=== PATIENT | female | born 1995 | race Caucasian/White ===

== ENCOUNTER 2016-06-23 03:16 | Emergency (ER) | payer OTHER ==
--- NOTE | 2016-06-23 05:22 | DIAGNOSTIC IMAGING REPORT ---
PROCEDURE: XR ABD SERIES 2V ABD/1V CHEST INDICATION: ABD PX TECHNIQUE: AP supine and upright views of the abdomen with single view of the chest. COMPARISON: None. FINDINGS: CHEST: Lungs are clear. Normal cardiovascular structures. Bony thorax is unremarkable. Singh rods from T4-L1. ABDOMEN: Bowel gas pattern is normal. Large amount of stool. No soft-tissue masses or unusual calcifications. No evidence of free air. IUD in place. Umbilical metallic piercing device projects over the lumbar spine. Osseous structures are unremarkable. IMPRESSION: 1. Negative chest 2. Obstipation
--- NOTE | 2016-06-24 02:30 | ED ORDER SUMMARY ---
..... Patient: FRANCIA GUY OrderSheet [facility] VisitID: [id number] [address] [place] [address] 21y, F Registration Date/Time: 06/23/2016 ORDER SHEET Weight: 63.5 kg (stated) Allergies: Oxycodone GENERAL ORDERS: Abd Series 2V Abd/1V Chest Urgent (03:37 06/23/2016 PHutchinson DO) (Ack 3:52 [facility] Animal Caregiver) (4:14 Jose) CBC w Diff Urgent (03:38 06/23/2016 PHutchinson DO) (Ack 3:52 [facility] Animal Caregiver) (4:32 RCollier R.N.) CMP Urgent (03:38 06/23/2016 PHutchinson DO) (Ack 3:52 [facility] Animal Caregiver) (4:32 RCollier R.N.) UA-Culture if indicated Urgent (03:38 06/23/2016 PHutchinson DO) (Ack 3:52 [facility] Animal Caregiver) (Cancelled: Unable to Collect5:41 RCollier R.N.) Amylase Urgent (03:38 06/23/2016 PHutchinson DO) (Ack 3:52 [facility] Animal Caregiver) (4:32 RCollier R.N.) Lipase Urgent (03:38 06/23/2016 PHutchinson DO) (Ack 3:52 [facility] Caregiver) (4:32 RCollier R.N.) Urine Drug Screen Urgent (03:38 06/23/2016 PHutchinson DO) (Ack 3:52 [facility] Animal Caregiver) (Cancelled: Unable to Collect5:41 RCollier R.N.) Urine Urgent (03:38 06/23/2016 PHutchinson DO) (Ack 3:52 [facility] Animal Caregiver) (Cancelled: Unable to Collect5:41 RCollier R.N.) NPO (03:38 06/23/2016 PHutchinson DO) (3:54 RCollier R.N.) MEDICATION ORDERS: IV FLUIDS: IV NS : initial bolus 1000 mL (1000 mL/hr), then 500 mL/hr for X2 (NOW) (03:37 06/23/2016 [facility]) (Ack 3:38 RCollier R.N.) (3:53 RCollier R.N.) Reglan IV 10 mg (NOW) (03:37 06/23/2016 [facility]) (Ack 3:38 RCollier R.N.) (3:53 RCollier R.N.) Zofran IV 4 mg (NOW) (03:38 06/23/2016 [facility]) (Ack 3:38 RCollier R.N.) (3:53 RCollier R.N.) ORDER SHEET NOTES: [Electronically signed by Kayla Paez R.N. (05:42 06/23/2016)] [Electronically signed by Navid Mcmahon DO (06:22 06/23/2016)] [Electronically locked/signed by Kayla Paez R.N. (05:42 06/23/2016)]
--- NOTE | 2016-06-24 02:30 | ED ORDER SUMMARY ---
..... Patient: FRANCIA GUY OrderSheet [facility] VisitID: [id number] [address] [place] [address] 21y, F Registration Date/Time: 06/23/2016 ORDER SHEET Weight: 63.5 kg (stated) Allergies: Oxycodone GENERAL ORDERS: Abd Series 2V Abd/1V Chest Urgent (03:37 06/23/2016 PHutchinson DO) (Ack 3:52 [facility] Security Checker) (4:14 Jose) CBC w Diff Urgent (03:38 06/23/2016 PHutchinson DO) (Ack 3:52 [facility] Security Checker) (4:32 RCollier R.N.) CMP Urgent (03:38 06/23/2016 PHutchinson DO) (Ack 3:52 [facility] Security Checker) (4:32 RCollier R.N.) UA-Culture if indicated Urgent (03:38 06/23/2016 PHutchinson DO) (Ack 3:52 [facility] Security Checker) (Cancelled: Unable to Collect5:41 RCollier R.N.) Amylase Urgent (03:38 06/23/2016 PHutchinson DO) (Ack 3:52 [facility] Checker) (4:32 RCollier R.N.) Lipase Urgent (03:38 06/23/2016 PHutchinson DO) (Ack 3:52 [facility] Checker) (4:32 RCollier R.N.) Urine Drug Screen Urgent (03:38 06/23/2016 PHutchinson DO) (Ack 3:52 [facility] Security Checker) (Cancelled: Unable to Collect5:41 RCollier R.N.) Urine Urgent (03:38 06/23/2016 PHutchinson DO) (Ack 3:52 [facility] Check[facility]) (Cancelled: Unable to Collect5:41 RCollier R.N.) NPO (03:38 06/23/2016 PHutchinson DO) (3:54 RCollier R.N.) MEDICATION ORDERS: IV FLUIDS: IV NS : initial bolus 1000 mL (1000 mL/hr), then 500 mL/hr for X2 (NOW) (03:37 06/23/2016 [facility]) (Ack 3:38 RCollier R.N.) (3:53 RCollier R.N.) Reglan IV 10 mg (NOW) (03:37 06/23/2016 [facility]) (Ack 3:38 RCollier R.N.) (3:53 RCollier R.N.) Zofran IV 4 mg (NOW) (03:38 06/23/2016 [facility]) (Ack 3:38 RCollier R.N.) (3:53 RCollier R.N.) ORDER SHEET NOTES: [Electronically signed by Kayla Paez R.N. (05:42 06/23/2016)] [Electronically signed by Navid Mcmahon DO (06:22 06/23/2016)] [Electronically locked/signed by Kayla Paez R.N. (05:42 06/23/2016)]
--- NOTE | 2016-06-24 02:30 | ED MAR SUMMARY ---
..... Medication Administration Record [facility] [address] [place] [address] Patient: FRANCIA GUY Visit ID: [id number] 21y, F Weight: 63.5 kg Height/Length: 67 in BMI: 21.9 ALLERGIES: Oxycodone Start 03:48 06/23/2016 Kayla Paez R.N., Stop 04:55 06/23/2016 Kayla Paez R.N. Medication Administered: IV NS (SALINE), Dose: IV Fluids over 1 hour(s), Rate: 1000 mL/hr, Dispensed: 1000 mL bag, Site: #1 right AC. Medication Ordered: IV NS : initial bolus 1000 mL (1000 mL/hr), then 500 mL/hr for X2 (NOW). Given 03:51 06/23/2016 Kayla Paez R.N. Medication Administered: ZOFRAN [IVP] (ONDANSETRON HCL), Dose: 4 mg IVP over 30 second(s), Site: #1 right AC. Medication Ordered: Zofran IV 4 mg (NOW). Given 03:52 06/23/2016 Kayla Paez R.N. Medication Administered: REGLAN [IVP] (METOCLOPRAMIDE HCL), Dose: 10 mg IVP over 90 second(s), Site: #1 right AC. Medication Ordered: Reglan IV 10 mg (NOW).
--- NOTE | 2016-06-24 02:30 | ED CLINICAL REPORT ---
Clinical Report - Physicians/Mid Levels [facility] [address] [place] [address] 06/23/2016 3:17 Patient: FRANCIA GUY Time Seen: 03:28. Arrived- By private vehicle. Historian- patient and family. HISTORY OF PRESENT ILLNESS Chief Complaint: ABDOMINAL PAIN and CONSTIPATION. At its maximum, severity described as moderate. When seen in the E.D., severity described as moderate. Modifying factors- worsened by movement. Relieved by rest. It is described as "pain" and cramping. No radiation. It is described as generalized in location. This started about 1 week ago and is still present. It was gradual in onset and has been waxing/waning. The patient has had nausea. No vomiting or diarrhea. (No BM since breast augmentation surgery 1.5 weeks ago). Similar symptoms previously: Recent medical care: The patient was seen recently at another facility and hospitalized. ( She had breast augmentation surgery last month). REVIEW OF SYSTEMS Last normal menstrual period- about 6 years ago. Uses an intrauterine device. She has had constipation. No black stools, hematemesis, difficulty with urination, pain with urination or urinary frequency. No bloody stools, fever, headache, sore throat or chest pain. No difficulty breathing, cough, joint pain or skin rash. Denies current . Last bowel movement- 10 days ago. All systems otherwise negative, except as recorded above. PAST HISTORY See nurses notes. PCP: Dr Cole Problems: Ovarian Cyst. Torticollis. Anxiety Reaction. Influenza A (Apr 11, 2016) Surgeries: Breast Augmentation [] Back Surgery. Foot surgery. SOCIAL HISTORY Never smoker. No alcohol use or drug use. Is a local resident. ADDITIONAL NOTES The nursing notes have been reviewed. PHYSICAL EXAM Vital Signs: 06/23/2016 03:34 BP: 96/64. HR: 87. RR: 16. O2 saturation: 99%. Temp: 98.4 F. Pain level now: 7/10. Appearance: Alert. Oriented X3. Patient in mild distress. Eyes: Eyes normal inspection. No scleral icterus or pale conjunctivae. ENT: Pharynx normal. No pharyngeal erythema or tonsillar exudate. The mucous membranes are not dry. Neck: Normal inspection. Neck supple. CVS: Normal heart rate and rhythm. Heart sounds normal. Pulses normal. Respiratory: No respiratory distress. Breath sounds normal. Abdomen: Mild tenderness diffusely. No mass. No rebound tenderness or guarding. Back: Normal inspection. Skin: Skin warm and dry. Normal skin color. No rash. Normal skin turgor. Extremities: Extremities exhibit normal ROM. No calf tenderness. No lower extremity edema. Neuro: Oriented X 3. No motor deficit. LABS, X-RAYS, AND EKG Chest X-ray: No acute disease. Normal lung markings present. Normal heart size. Mediastinum normal. Great vessels normal. No infiltrate. Views: PA. Technique: good. The X-rays were interpreted contemporaneously by me. KUB: Increased stool present (markedly). No pneumoperitoneum. Views: two-view AP. Technique: good. The X-rays were interpreted contemporaneously by me. Laboratory Tests: CBC w Diff: (TAL: 06/23/2016 03:45) ( [facility] 06/23/2016 03:59) Final results Test Result Flag Units (Reference) WHITE BLOOD COUNT 10.8 K/uL (4.5-11.5) RED BLOOD COUNT 4.38 M/uL (4.00-5.20) HEMOGLOBIN 11.9 L gm/dL (12.0-16.0) HEMATOCRIT 35.8 L % (36.0-46.0) MEAN CELL VOLUME 82 fL (80-100) MEAN CORPUSCULAR HGB 27 pg (26-34) MEAN CORPUSCULAR HGB CONC 33 g/dL (31-37) RED CELL DISTRIBUTION WIDTH 13.3 % (11.6-14.8) PLATELET COUNT 314 K/uL (150-400) NEUTROPHIL % 78.3 H % (50-75) LYMPH % 12.9 L % (25-40) MONO % 7.2 % (3-14) EOSINOPHIL % 1.2 % (0-4) BASOPHIL % 0.4 % (0-2) CMP: (TAL: 06/23/2016 03:45) ( [facility] 06/23/2016 04:11) Final results Test Result Flag Units (Reference) GLUCOSE 107 mg/dL (70-110) BUN 12 mg/dL (7-18) CREATININE 0.6 mg/dL (0.6-1.3) Estimated GFR >60 mL/min Estimated GFR- >60 mL/min Note: Persistent reduction over 3 months in eGFR<60 mL/min/1.73 m2 defines CKD. Patients with eGFR values>=60 mL/min/1.73 m2 may also have CKD if evidence ofpersistent proteinuria. Additional information may be foundat www.kidney.org. SODIUM 141 mmol/L (136-145) POTASSIUM 3.9 mmol/L (3.5-5.1) CHLORIDE 103 mmol/L (98-107) CARBON DIOXIDE 29 mmol/L (21-32) CALCIUM 9.1 mg/dL (8.5-10.1) TOTAL PROTEIN 7.1 g/dL (6.4-8.2) ALBUMIN 3.3 g/dL (3.3-5.0) BILIRUBIN, TOTAL 0.3 mg/dL (0.0-1.0) ALKALINE PHOSPHATASE 62 U/L (46-116) AST (SGOT) 25 U/L (15-37) ALT (SGPT) 34 U/L (12-78) LIPASE 72 L U/L (73-393) AMYLASE 38 U/L (25-115) . Pulse Oximetry: 06/23/2016 03:34 O2 saturation: 99%. (FIO2 - room air). Interpretation: normal. PROGRESS AND PROCEDURES Course of Care: Normal Saline 1 liter IVPB given. Zofran 4 mg IVP given. Reglan 10 mg IVP given. Mineral oil enema given with good results 05:23 06/23/16. Patient is stable. Physical exam findings are improved. Symptoms much better. Pt feels much better after large BM. Benign abdominal exam. No evident SBO / bowel obstruction. Labs otherwise unremarkable. Patient/family counseled. Old ED records reviewed. Patient has had multiple ED visits ([facility] with 5 visits to area ED's in past 12 months; PDMP with oxycodone 5mg (#40) on 06/17/2016, Hydromorphone 2 mg (#45) on 06/10/2016; Diazepam 5 mg (#35) on 06/10/2106). Disposition: Discharged. Condition: stable and improved. CLINICAL IMPRESSION Constipation INSTRUCTIONS Do not work for two days. Drink plenty of fluids. Warnings: Further evaluation is necessary in order to recheck abnormal lab, obtain test results, conduct further tests and assess the possibility of serious illness. It is very important to follow up with a physician. GENERAL WARNINGS: Return or contact your physician immediately if your condition worsens or changes unexpectedly, if not improving as expected, or if other problems arise. Your Current Medications: CONTINUE TAKING THE FOLLOWING MEDICATIONS: Hydrocodone-Acetaminophen Oral : unknown dose. Unknown* : OTC stool softener. Valium Oral : PRN, unknown dose. Prescription Medications: Zofran (orally disintegrating tablets) 4 mg: take 1 orally every 8 hours as needed for nausea and vomiting. Dispense five (5). No refill. OTC Medications: Take magnesium citrate and Fleets enema according to label instructions. Available over the counter. Follow-up: Follow up with your doctor tomorrow. (Electronically signed by Navid Mcmahon DO 06/23/2016 6:22)
--- NOTE | 2016-06-24 02:30 | ED MED RECONCILIATION SUMMARY ---
Patient: FRANCIA GUY Medication Reconciliation Report [facility] VisitID: [id number] [address] [place] [address] 21y, F Registration Date/Time: 06/23/2016 Weight: 63.5 kg Height/Length: 67 in. BMI: 21.9 ALLERGIES: Oxycodone The patient's Home Medications are listed below: CONTINUE TAKING THE FOLLOWING MEDICATIONS: Hydrocodone-Acetaminophen Oral, unknown dose Valium Oral, PRN, unknown dose The source(s) of the original Home Medication information: Not obtained. The following Medications were given to the patient in the Emergency Department: IV NS IV Fluids bolus 0, then 1000 mL/hr, administered: 06/23/2016 3:48:00 AM Zofran [IVP] IVP 4 mg, administered: 06/23/2016 3:51:00 AM Reglan [IVP] IVP 10 mg, administered: 06/23/2016 3:52:00 AM The following Medications were prescribed to the patient: Take magnesium citrate and Fleets enema according to label instructions. Available over the counter. -- Navid Mcmahon DO Zofran (orally disintegrating tablets) 4 mg: take 1 orally every 8 hours as needed for nausea and vomiting. Dispense five (5). No refill. -- Navid Mcmahon DO
--- NOTE | 2016-06-24 02:30 | ED MAR SUMMARY ---
..... Medication Administration Record [facility] [address] [place] [address] Patient: FRANCIA GUY Visit ID: [id number] 21y, F Weight: 63.5 kg Height/Length: 67 in BMI: 21.9 ALLERGIES: Oxycodone Start 03:48 06/23/2016 Kayla Paez R.N., Stop 04:55 06/23/2016 Kayla Paez R.N. Medication Administered: IV NS (SALINE), Dose: IV Fluids over 1 hour(s), Rate: 1000 mL/hr, Dispensed: 1000 mL bag, Site: #1 right AC. Medication Ordered: IV NS : initial bolus 1000 mL (1000 mL/hr), then 500 mL/hr for X2 (NOW). Given 03:51 06/23/2016 Kayla Paez R.N. Medication Administered: ZOFRAN [IVP] (ONDANSETRON HCL), Dose: 4 mg IVP over 30 second(s), Site: #1 right AC. Medication Ordered: Zofran IV 4 mg (NOW). Given 03:52 06/23/2016 Kayla Paez R.N. Medication Administered: REGLAN [IVP] (METOCLOPRAMIDE HCL), Dose: 10 mg IVP over 90 second(s), Site: #1 right AC. Medication Ordered: Reglan IV 10 mg (NOW).
--- NOTE | 2016-06-24 02:30 | ED DISCHARGE INSTRUCTIONS ---
Patient: FRANCIA GUY General Instructions [facility] VisitID: [id number] [address] [place] [address] 21y, F Registration Date/Time: 06/23/2016 Constipation INSTRUCTIONS Do not work for two days. Drink plenty of fluids. Warnings: Further evaluation is necessary in order to recheck abnormal lab, obtain test results, conduct further tests and assess the possibility of serious illness. It is very important to follow up with a physician. GENERAL WARNINGS: Return or contact your physician immediately if your condition worsens or changes unexpectedly, if not improving as expected, or if other problems arise. Your Current Medications: CONTINUE TAKING THE FOLLOWING MEDICATIONS: Hydrocodone-Acetaminophen Oral : unknown dose. Unknown* : OTC stool softener. Valium Oral : PRN, unknown dose. Prescription Medications: Zofran (orally disintegrating tablets) 4 mg: take 1 orally every 8 hours as needed for nausea and vomiting. Dispense five (5). No refill. OTC Medications: Take magnesium citrate and Fleets enema according to label instructions. Available over the counter. Follow-up: Follow up with your doctor tomorrow. ADDITIONAL INFORMATION Constipation (Adult) Constipation is bowel movements that are less frequent than usual. Stools often become very hard and difficult to pass. This may lead to abdominal pain and bloating. It may also cause painful bowel movements. Constipation may be due to a diet thats low in fiber. Some medications, especially pain medications, can also cause it. Constipation may be treated with enemas, suppositories, laxatives or stool softeners. Your doctor will advise you which will work best for you. Follow the advice below to help avoid this problem in the future. Home Care Medication: Take any medicines as directed. Some laxatives are safe only for occasional use. Others can be taken on a regular basis. Talk to your doctor or pharmacist if you have questions. General Care: Prescription pain medications can cause constipation. If you are prescribed pain medications, ask the doctor whether you should also take a stool softener. A diet high in fiber with plenty of fluids helps to maintain regular, soft bowel movements. The following foods are good sources of dietary fiber: Cereals and breads: Whole grain cereal with bran, oatmeal, rolled oats, whole grain breads Fruits: All fruits (fresh and dried), raisins, prunes, apricots, berries, figs Vegetables: Any fresh vegetables, especially peas, broccoli, brussels sprouts, winter squash, green beans, cauliflower, ruiz beans, carrots Other: Popcorn, brown rice Drink plenty of water when you increase the amount of fiber you eat. Follow Up with your doctor or return to this facility if symptoms do not improve in the next few days. You may require further tests or a referral to a specialist. Get Prompt Medical Attention if any of the following occur: Fever over 100.4F (38C) Failure to resume normal bowel movements Increasing abdominal or back pain Nausea or vomiting Abdominal swelling Blood in the stool Weakness, dizziness or fainting Unexpected vaginal bleeding Ondansetron Oral disintegrating tablet What is this medicine? ONDANSETRON (on JO ANN se carson) is used to treat nausea and vomiting caused by chemotherapy. It is also used to prevent or treat nausea and vomiting after surgery. How should I use this medicine? These tablets are made to dissolve in the mouth. Do not try to push the tablet through the foil backing. With dry hands, peel away the foil backing and gently remove the tablet. Place the tablet in the mouth and allow it to dissolve, then swallow. While you may take these tablets with water, it is not necessary to do so. Talk to your spaghetti press helper regarding the use of this medicine in children. Special care may be needed. What side effects may I notice from receiving this medicine? Side effects that you should report to your doctor or health personal care worker as soon as possible: allergic reactions like skin rash, itching or hives, swelling of the face, lips, or tongue breathing problems dizziness fast or irregular heartbeat feeling faint or lightheaded, falls fever and chills swelling of the hands and feet tightness in the chest Side effects that usually do not require medical attention (report to your doctor or health personal care worker if they continue or are bothersome): constipation or diarrhea headache What may interact with this medicine? Do not take this medicine with any of the following medications: -apomorphine -cisapride -dofetilide -dronedarone -pimozide -thioridazine -ziprasidone This medicine may also interact with the following medications: -carbamazepine -phenytoin -rifampicin -tramadol -other medicines that prolong the QT interval (cause an abnormal heart rhythm) What if I miss a dose? If you miss a dose, take it as soon as you can. If it is almost time for your next dose, take only that dose. Do not take double or extra doses. Where should I keep my medicine? Keep out of the reach of children. Store between 2 and 30 degrees C (36 and 86 degrees F). Throw away any unused medicine after the expiration date. What should I tell my health care provider before I take this medicine? They need to know if you have any of these conditions: heart disease history of irregular heartbeat liver disease low levels of magnesium or potassium in the blood an unusual or allergic reaction to ondansetron, granisetron, other medicines, foods, dyes, or preservatives or trying to get breast-feeding What should I watch for while using this medicine? Check with your doctor or health personal care worker as soon as you can if you have any sign of an allergic reaction. You have been given the following additional information: Constipation (Adult) Ondansetron Oral disintegrating tablet Do not work for two days. (Electronically signed by Navid Mcmahon DO 06/23/2016 6:22)
--- NOTE | 2016-06-24 02:30 | ED NURSING NOTES ---
Clinical Report - Nurses [facility] [address] [place] [address] 06/23/2016 3:17 Patient: FRANCIA GUY TRIAGE Triage time 03:31. Acuity: LEVEL 3. Chief Complaint: ABDOMINAL PAIN and CONSTIPATION (constipation). --03:36 Marino Schwab R.N. 03:34 06/23/16. BP: 96/64. HR: 87. RR: 16. O2 saturation: 99% on room air. Temp: 98.4 F (oral). Pain level now: 10/25. --03:36 Marino Schwab R.N. Weight: 63.5 kg stated. Height/Length: 67 inches Per Patient. BMI: 21.9. --03:35 Marino Schwab R.N. Medications Hydrocodone-Acetaminophen Oral (unknown dose). --03:29 Marino Schwab R.N. Valium Oral, PRN (unknown dose). --03:30 Marino Schwab R.N. Unknown (OTC stool softener). --03:30 Marino Schwab R.N. The following entry was struck by Marino Schwab R.N., 03:30 (06/23/16) Reason - other. <<STRICKEN ENTRY-- None. --03:28 Marino Schwab R.N. --END STRIKE>>. Allergies Oxycodone. Moderate ("makes my stomach sick") --03:27 Marino Schwab R.N. History Arrived by private vehicle. Historian: patient. Accompanied by family. This is a new problem. Symptoms are constant (about 1 1/2 weeks ago). ( No BM since breast augmentation surgery 1.5 weeks ago). She has had constipation and abdominal pain. PAST MEDICAL HX: Immunizations: up-to-date. Last normal menstrual period- 6 years ago. Uses an intrauterine device. Denies current . SOCIAL HX: Never smoker. FALL RISK ASSESSMENT: Fall risk assessment completed. No fall risk identified. NUTRITIONAL RISK ASSESSMENT: The nutritional risk assessment revealed no deficiencies. FUNCTIONAL ASSESSMENT: Functional assessment: no impairments noted. LEARNING NEEDS ASSESSMENT: The learning needs assessment revealed no barriers. SKIN INTEGRITY ASSESSMENT: Skin integrity risk assessment completed. No skin integrity risk identified. --03:36 Marino Schwab R.N. PROBLEMS: Abdominal Pain. Ovarian Cyst. Torticollis. Tonsillitis. Anxiety Reaction. Sprain. --03:31 Marino Schwab R.N. ADDITIONAL SURGERIES: Back Surgery. Breast Augmentation []. Foot surgery. --03:31 Marino Schwab R.N. Interventions ID band on patient. To treatment room. --03:36 Marino Schwab R.N. PHYSICAL ASSESSMENT Ambulatory to room. ( last BM reported as "a week and a half ago"). GENERAL / NEURO / PSYCH: Alert. Oriented X 4. HEENT: Mucous membranes are pink. RESPIRATORY: Respirations not labored. CVS: Capillary refill less than 2 seconds. GI / : Abdominal tenderness. Diminished bowel sounds in the RUQ and RLQ. No abdominal distention. No nausea noted. SKIN: Skin is warm and dry. --03:59 Marino Schwab R.N. NURSING PROGRESS NOTES 03:47 06/23/2016 Site #1 started via IV in the right antecubital space with an 20g angiocath, with aseptic technique and good blood return; one attempt. Blood drawn: rainbow set. Labeled in the presence of the patient and sent to the lab. Saline lock flushed with 10 mL saline. --03:52 Kayla Paez R.N. 03:48 06/23/2016 Started bag #1 1000 mL IV Fluids IV NS (Saline); at 1000 mL/hr over 1 hour(s) via site #1. Allergies verified and confirmed 5 rights. IV patency established. IV site checked: no pain, redness, or swelling. IV flushed thoroughly pre- and post-medication administration. --03:53 Kayla Paez R.N. 03:51 06/23/2016 Zofran (Ondansetron HCl) IVP 4 mg given over 30 second(s) via site #1. Allergies verified and confirmed 5 rights. IV patency established. IV site checked: no pain, redness, or swelling. IV flushed thoroughly pre- and post-medication administration. IVP given by RN. --03:53 Kayla Paez R.N. 03:52 06/23/2016 Reglan (Metoclopramide HCl) IVP 10 mg given over 90 second(s) via site #1. Allergies verified and confirmed 5 rights. IV patency established. IV site checked: no pain, redness, or swelling. IV flushed thoroughly pre- and post-medication administration. IVP given by RN. --03:53 Kayla Paez R.N. 03:50. Patient gowned. Head of bed elevated. Two patient identifiers checked. Call light placed in reach. Bed placed in lowest position. Brakes of bed on. Patient ready for evaluation- chart flagged. --04:00 Marino Schwab R.N. Mineral oil enema given, patient tolerated the procedure well. (Pt instructed to hold solution in rectum for 15-20min. BSC placed at bedside for pt use.). --04:36 Kayla Paez R.N. 05:03- Pt ambulates to restroom. --05:06 Kayla Paez R.N. 04:55 06/23/2016 IV Fluids IV NS Discontinued: bag #1 completed. Total amount infused: 1000 mL. IV patency established. IV site checked: no pain, redness, or swelling. IV flushed thoroughly. --05:11 Kayla Paez R.N. 05:23- Pt ambulates to restroom again and able to produce large amount of stool. Pt states she feels much better. EDMD notified. --05:23 Kayla Paez R.N. DISPOSITION / DISCHARGE 05:37 06/23/2016 Site #1 removed upon discharge. Catheter intact. Manual pressure and bandage applied. --05:39 Kayla Paez R.N. Condition at departure: improved and stable. No learning barriers present. Discharge instructions provided and reviewed with the patient. Reviewed medication(s) side effects, precautions, dosing and course information. Prescription(s) given to the patient (Zofran). Patient verbalized understanding. Written instructions provided in Swedish. The patient was discharged home and accompanied by parent. She left the Emergency Department ambulatory and via private vehicle. Parent driving. --05:40 Kayla Paez R.N. 05:39 06/23/16. BP: 103/63. HR: 60. RR: 15. O2 saturation: 99% on room air. Temp: deferred. [place]-Huff pain scale: 4/10. --05:40 Kayla Paez R.N. Locked/Released at 06/23/2016 5:42 by Kayla Paez R.N.
--- NOTE | 2016-06-24 02:30 | ED MED RECONCILIATION SUMMARY ---
Patient: FRANCIA GUY Medication Reconciliation Report [facility] VisitID: [id number] [address] [place] [address] 21y, F Registration Date/Time: 06/23/2016 Weight: 63.5 kg Height/Length: 67 in. BMI: 21.9 ALLERGIES: Oxycodone The patient's Home Medications are listed below: CONTINUE TAKING THE FOLLOWING MEDICATIONS: Hydrocodone-Acetaminophen Oral, unknown dose Valium Oral, PRN, unknown dose The source(s) of the original Home Medication information: Not obtained. The following Medications were given to the patient in the Emergency Department: IV NS IV Fluids bolus 0, then 1000 mL/hr, administered: 06/23/2016 3:48:00 AM Zofran [IVP] IVP 4 mg, administered: 06/23/2016 3:51:00 AM Reglan [IVP] IVP 10 mg, administered: 06/23/2016 3:52:00 AM The following Medications were prescribed to the patient: Take magnesium citrate and Fleets enema according to label instructions. Available over the counter. -- Navid Mcmahon DO Zofran (orally disintegrating tablets) 4 mg: take 1 orally every 8 hours as needed for nausea and vomiting. Dispense five (5). No refill. -- Navid Mcmahon DO
--- NOTE | 2016-06-24 02:30 | ED DISCHARGE INSTRUCTIONS ---
Patient: FRANCIA GUY General Instructions [facility] VisitID: [id number] [address] [place] [address] 21y, F Registration Date/Time: 06/23/2016 Constipation INSTRUCTIONS Do not work for two days. Drink plenty of fluids. Warnings: Further evaluation is necessary in order to recheck abnormal lab, obtain test results, conduct further tests and assess the possibility of serious illness. It is very important to follow up with a physician. GENERAL WARNINGS: Return or contact your physician immediately if your condition worsens or changes unexpectedly, if not improving as expected, or if other problems arise. Your Current Medications: CONTINUE TAKING THE FOLLOWING MEDICATIONS: Hydrocodone-Acetaminophen Oral : unknown dose. Unknown* : OTC stool softener. Valium Oral : PRN, unknown dose. Prescription Medications: Zofran (orally disintegrating tablets) 4 mg: take 1 orally every 8 hours as needed for nausea and vomiting. Dispense five (5). No refill. OTC Medications: Take magnesium citrate and Fleets enema according to label instructions. Available over the counter. Follow-up: Follow up with your doctor tomorrow. ADDITIONAL INFORMATION Constipation (Adult) Constipation is bowel movements that are less frequent than usual. Stools often become very hard and difficult to pass. This may lead to abdominal pain and bloating. It may also cause painful bowel movements. Constipation may be due to a diet thats low in fiber. Some medications, especially pain medications, can also cause it. Constipation may be treated with enemas, suppositories, laxatives or stool softeners. Your doctor will advise you which will work best for you. Follow the advice below to help avoid this problem in the future. Home Care Medication: Take any medicines as directed. Some laxatives are safe only for occasional use. Others can be taken on a regular basis. Talk to your doctor or pharmacist if you have questions. General Care: Prescription pain medications can cause constipation. If you are prescribed pain medications, ask the doctor whether you should also take a stool softener. A diet high in fiber with plenty of fluids helps to maintain regular, soft bowel movements. The following foods are good sources of dietary fiber: Cereals and breads: Whole grain cereal with bran, oatmeal, rolled oats, whole grain breads Fruits: All fruits (fresh and dried), raisins, prunes, apricots, berries, figs Vegetables: Any fresh vegetables, especially peas, broccoli, brussels sprouts, winter squash, green beans, cauliflower, ruiz beans, carrots Other: Popcorn, brown rice Drink plenty of water when you increase the amount of fiber you eat. Follow Up with your doctor or return to this facility if symptoms do not improve in the next few days. You may require further tests or a referral to a specialist. Get Prompt Medical Attention if any of the following occur: Fever over 100.4F (38C) Failure to resume normal bowel movements Increasing abdominal or back pain Nausea or vomiting Abdominal swelling Blood in the stool Weakness, dizziness or fainting Unexpected vaginal bleeding Ondansetron Oral disintegrating tablet What is this medicine? ONDANSETRON (on JO ANN se carson) is used to treat nausea and vomiting caused by chemotherapy. It is also used to prevent or treat nausea and vomiting after surgery. How should I use this medicine? These tablets are made to dissolve in the mouth. Do not try to push the tablet through the foil backing. With dry hands, peel away the foil backing and gently remove the tablet. Place the tablet in the mouth and allow it to dissolve, then swallow. While you may take these tablets with water, it is not necessary to do so. Talk to your sledger regarding the use of this medicine in children. Special care may be needed. What side effects may I notice from receiving this medicine? Side effects that you should report to your doctor or health child day care teacher as soon as possible: allergic reactions like skin rash, itching or hives, swelling of the face, lips, or tongue breathing problems dizziness fast or irregular heartbeat feeling faint or lightheaded, falls fever and chills swelling of the hands and feet tightness in the chest Side effects that usually do not require medical attention (report to your doctor or health child day care teacher if they continue or are bothersome): constipation or diarrhea headache What may interact with this medicine? Do not take this medicine with any of the following medications: -apomorphine -cisapride -dofetilide -dronedarone -pimozide -thioridazine -ziprasidone This medicine may also interact with the following medications: -carbamazepine -phenytoin -rifampicin -tramadol -other medicines that prolong the QT interval (cause an abnormal heart rhythm) What if I miss a dose? If you miss a dose, take it as soon as you can. If it is almost time for your next dose, take only that dose. Do not take double or extra doses. Where should I keep my medicine? Keep out of the reach of children. Store between 2 and 30 degrees C (36 and 86 degrees F). Throw away any unused medicine after the expiration date. What should I tell my health care provider before I take this medicine? They need to know if you have any of these conditions: heart disease history of irregular heartbeat liver disease low levels of magnesium or potassium in the blood an unusual or allergic reaction to ondansetron, granisetron, other medicines, foods, dyes, or preservatives or trying to get breast-feeding What should I watch for while using this medicine? Check with your doctor or health child day care teacher as soon as you can if you have any sign of an allergic reaction. You have been given the following additional information: Constipation (Adult) Ondansetron Oral disintegrating tablet Do not work for two days. (Electronically signed by Navid Mcmahon DO 06/23/2016 6:22)
== END 2016-06-23 05:40 | disposition home or self-care (01) ==
LOC: ED SRH 03:16
DX: K59.00 Constipation, unspecified (principal)
CPT/HCPCS: 90100; 92235; 92530; 95059

== ENCOUNTER 2016-07-20 15:52 | Outpatient (CLI) | payer OTHER | END 2016-07-20 23:00 | LOC: LABWC S 15:52 | DX: N30.01 Acute cystitis with hematuria (principal) | CPT/HCPCS: 90004; 90148; 90469 ==